=== PATIENT | female | born 1995 | race Asian ===

== ENCOUNTER 2017-06-26 05:03 | Emergency (ER) | payer OTHER ==
[~2017-06-26] VITALS: Ht 160 cm; Wt 56.7 kg
[2017-06-26 05:10] VITALS: TEMP 98.6
[2017-06-26 06:14] VITALS: BP 126/93
== END 2017-06-26 06:38 | disposition short-term general hospital (02) ==
LOC: ED 05:03
DX: O60.03 Preterm labor without delivery, third trimester (principal); Z3A.38 38 weeks gestation of pregnancy
CPT/HCPCS: 36415; 81000; 99285

== ENCOUNTER 2017-06-26 06:34 | Outpatient (CLI) | payer OTHER | END 2017-06-26 06:49 | disposition short-term general hospital (02) | LOC: AMB 06:34 | DX: O60.03 Preterm labor without delivery, third trimester (principal); Z3A.38 38 weeks gestation of pregnancy | CPT/HCPCS: A0425; A0427 ==

== ENCOUNTER 2018-05-08 04:29 | Outpatient (CLI) | payer OTHER | END 2018-05-08 04:49 | disposition short-term general hospital (02) | LOC: AMB 04:29 | DX: O20.8 Other hemorrhage in early pregnancy (principal); Z3A.29 29 weeks gestation of pregnancy | CPT/HCPCS: A0425; A0427 ==

== ENCOUNTER → 2019-04-01 11:04 | Outpatient (CLI) | payer OTHER | END | disposition home or self-care (01) | LOC: AMB 11:04 | DX: Z04.1 Encounter for examination and observation following transport accident (principal) ==

== ENCOUNTER 2019-04-01 12:16 | Emergency (ER) | payer OTHER ==
[~2019-04-01] VITALS: Ht 162.6 cm; Wt 49.9 kg
[2019-04-01 13:10] VITALS: BP 122/70; TEMP 98.1
== END 2019-04-01 13:10 | disposition home or self-care (01) ==
LOC: ED 12:16
DX: S80.02XA Contusion of left knee, initial encounter (principal); V49.40XA Driver injured in collision with unspecified motor vehicles in traffic accident, initial encounter
CPT/HCPCS: 99282